=== PATIENT | female | born 1975 | race Two or more races ===

== ENCOUNTER 2022-05-12 07:57 | Inpatient (IN) | payer MEDICAID ==
[~2022-05-12] VITALS: Ht 162.6 cm; Wt 90.7 kg
[2022-05-12] MEDS ORDERED: ONDANSETRON ODT 4 MG TAB PO ONE (08:45)
[2022-05-12] MEDS ORDERED: ACETAMINOPHEN 500 MG TAB PO ONE (09:00)
[2022-05-12 09:38] LABS: Basophils # (auto) 0.1 10 ^3/uL (0-0.2); Eosinophils # (auto) 0.1 10 ^3/uL (0-0.8); Eosinophils % (auto) 0.4 % (0.0-7.0); Mean Corpuscular Volume 80.6 fL (80.0-100.0); Monocytes # (auto) 1.1 10 ^3/uL (0-1.3)
[2022-05-12 09:39] LABS: Basophils % (auto) 0.5 % (0.0-2.0); Hematocrit 38.7 % (36.0-46.0); Hemoglobin 12.2 g/dL (12.2-16.2); Lymphocytes # (auto) 1.2 10 ^3/uL (0.4-5.4); Lymphocytes % (auto) 7.2 % (10.0-50.0); Mean Corpuscular Hemoglobin 25.5 pg (28.0-32.0); Mean Corpuscular Hgb Conc. 31.7 g/dL (32.0-36.0); Monocytes % (auto) 6.4 % (0.0-12.0); Neutrophils # (auto) 14.5 10 ^3/uL (1.6-8.6); Neutrophils % (auto) 85.5 % (37.0-80.0); Nucleated Red Blood Cells % 0.1 %; Red Blood Cells 4.79 10^6/uL (4.0-5.20); Red Cell Distribution Width 15.8 % (11.8-14.3)
[2022-05-12 10:03] LABS: Albumin 3.7 g/dL (3.4-5.0); BUN/Creatinine Ratio 14.7; Calcium 9.6 mg/dL (8.5-10.1); Potassium 4.1 mmol/L (3.5-5.1)
[2022-05-12 10:26] LABS: Bilirubin, Total 0.4 mg/dL (0.2-1.0); Total Protein 8.1 g/dL (6.4-8.2)
[2022-05-12] MEDS ORDERED: SODIUM CHLORIDE 0.9% 2,600 ML IV ONE (10:45)
[2022-05-12] MEDS ORDERED: levoFLOXacin 750MG 150 ML IV ONE (10:45)
[2022-05-12] MEDS ORDERED: MORPHINE SULFATE 4 MG/ML SYR/VIAL IV ONE (12:00)
[2022-05-12] MEDS ORDERED: ONDANSETRON HCL 4 MG/2 ML VIAL IV ONE (12:00)
[2022-05-12 12:11] LABS: Urine Bacteria MOD /hpf (None Seen); Urine Blood 3+ /uL (Negative); Urine Budding Yeast MANY /hpf (None Seen); Urine Mucus FEW (None Seen); Urine Specific Gravity 1.007 (1.001-1.035); Urine WBC 131 /hpf (0 - 5); Urine WBC Clumps PRESENT /hpf (None Seen)
[2022-05-12] MEDS ORDERED: ONDANSETRON HCL 4 MG/2 ML VIAL IV PRN (13:30)
[2022-05-12] MEDS: SODIUM CHLORIDE 0.9% 1,000 ML IV SCH (13:50)
[2022-05-12 13:51] LABS: Cholesterol 215 mg/dL (< 200)
[2022-05-12 13:53] LABS: HDL Cholesterol 48 mg/dL (40-59); LDL Cholesterol 156 mg/dL (< 100); Triglycerides 153 mg/dL (< 150)
[2022-05-12] MEDS ORDERED: LISI20TA28 PO (14:08)
[2022-05-12] MEDS: ACETAMINOPHEN 325 MG TAB PO PRN (17:02)
[2022-05-12] MEDS: HYDROcodone-ACET 7.5/325MG TAB PO PRN (23:36)
[2022-05-13] MEDS: SODIUM CHLORIDE 0.9% 1,000 ML IV SCH ×3 (02:50→19:58)
[2022-05-13 05:00] VITALS: BP 110/58
[2022-05-13 06:46] LABS: Basophils # (auto) 0.1 10 ^3/uL (0-0.2); Eosinophils # (auto) 0.3 10 ^3/uL (0-0.8); Neutrophils # (auto) 6.7 10 ^3/uL (1.6-8.6)
[2022-05-13 06:49] LABS: Albumin 2.6 g/dL (3.4-5.0); Calcium 8.1 mg/dL (8.5-10.1); Potassium 3.6 mmol/L (3.5-5.1)
[2022-05-13 06:51] LABS: BUN/Creatinine Ratio 9.9 (10.0-20.0)
[2022-05-13 06:53] LABS: Basophils % (auto) 0.5 % (0.0-2.0); Hematocrit 31.1 % (36.0-46.0); Hemoglobin 10.1 g/dL (12.2-16.2); Lymphocytes # (auto) 1.9 10 ^3/uL (0.4-5.4); Lymphocytes % (auto) 19.6 % (10.0-50.0); Mean Corpuscular Hemoglobin 26.3 pg (28.0-32.0); Mean Corpuscular Hgb Conc. 32.4 g/dL (32.0-36.0); Mean Corpuscular Volume 81.1 fL (80.0-100.0); Monocytes # (auto) 0.7 10 ^3/uL (0-1.3); Monocytes % (auto) 7.8 % (0.0-12.0); Neutrophils % (auto) 69.1 % (37.0-80.0); Nucleated Red Blood Cells % 0.1 %; Red Blood Cells 3.84 10^6/uL (4.0-5.20); Red Cell Distribution Width 15.9 % (11.8-14.3); White Blood Cell 9.6 10^3/uL (4.4-10.8)
[2022-05-13 06:54] LABS: Bilirubin, Total 0.2 mg/dL (0.2-1.0); Total Protein 6.2 g/dL (6.4-8.2)
[2022-05-13 09:00] VITALS: BP 115/68
[2022-05-13] MEDS ORDERED: levoFLOXacin 500MG 100 ML IV SCH (10:00)
[2022-05-13] MEDS: ENOXAPARIN SOD 40 MG/0.4 ML SYRINGE SC SCH (10:11)
[2022-05-13] MEDS: LISINOPRIL 20 MG TAB PO SCH (10:12)
[2022-05-13 12:36] VITALS: BP 121/71
[2022-05-13] MEDS: ACETAMINOPHEN 325 MG TAB PO PRN (13:12)
[2022-05-13 16:40] VITALS: BP 142/67
[2022-05-13 22:00] VITALS: BP 124/58
[2022-05-13] MEDS: HYDROcodone-ACET 7.5/325MG TAB PO PRN (23:49)
[2022-05-14] MEDS: SODIUM CHLORIDE 0.9% 1,000 ML IV SCH ×2 (00:50→07:30)
[2022-05-14 05:00] VITALS: BP 102/54
[2022-05-14 09:00] VITALS: BP 114/62
[2022-05-14] MEDS ORDERED: cefTRIAXone 1GM/50ML D5W 50 ML IV SCH (09:00)
[2022-05-14] MEDS: LISINOPRIL 20 MG TAB PO SCH (09:42)
[2022-05-14] MEDS: ENOXAPARIN SOD 40 MG/0.4 ML SYRINGE SC SCH (09:42)
[2022-05-14] MEDS ORDERED: CIPR-173 PO (10:31)
[2022-05-14 12:36] VITALS: BP 114/62
[2022-05-14 13:00] VITALS: BP 118/63
== END 2022-05-14 14:00 | disposition home or self-care (01) | DRG 720 ==
LOC: ER 07:57 → OVERFLOW 13:24 → WEST WING 21:43
PROVIDERS: ADMIT Nurse Practitioner Family; ATTEND Family Medicine
DX: A41.9 Sepsis, unspecified organism (principal); E66.01 Morbid (severe) obesity due to excess calories; N10 Acute pyelonephritis; I10 Essential (primary) hypertension; E86.0 Dehydration; Z68.34 Body mass index [BMI] 34.0-34.9, adult; Z20.822 Contact with and (suspected) exposure to COVID-19
CPT/HCPCS: 36415; 74176; 80053; 80061; 81001; 83036; 83605; 83690; 84443; 84702; 85025; 87040; 87086; 87426; 96361; 96365; 96375; G0378; J0696; J1956; J2405; Q0162